=== PATIENT | female | born 1995 | race Caucasian/White ===

== ENCOUNTER 2020-06-01 21:55 | Outpatient (CLI) | payer MEDICARE, OTHER ==
[~2020-06-01 21:55] MED LIST: COLACE 100MG C100 MG PO
[2020-06-03] MEDS ORDERED: ACYCLOVIR200 MG PO (07:48)
[2020-06-03] MEDS ORDERED: PRENATAL VITAM1 EAC6 PO (07:48)
[2020-06-03] MEDS ORDERED: TUMS200 MG PO (07:49)
== END 2020-06-02 08:40 | disposition home or self-care (01) ==
LOC: GENOP 21:55
DX: Z53.8 Procedure and treatment not carried out for other reasons (principal)
CPT/HCPCS: 59025; 81001

== ENCOUNTER 2020-06-03 04:05 | Inpatient (IN) | payer MEDICARE, OTHER ==
[~2020-06-03] VITALS: Ht 157.5 cm; Wt 77.1 kg
[2020-06-03] MEDS ORDERED: ACYCLOVIR200 MG PO (07:48)
[2020-06-03] MEDS ORDERED: PRENATAL VITAM1 EAC6 PO (07:48)
[2020-06-03] MEDS ORDERED: TUMS200 MG PO (07:49)
[2020-06-03 08:18] LABS: HEMOGLOBIN 10.9 gm/dl (12.3-15.3); RED BLOOD COUNT 3.86 M/UL (4.00-5.10); WHITE BLOOD COUNT 15.1 K/UL (4.5-11.0)
[2020-06-04] MEDS ORDERED: IBUPROFEN600 MG PO ×2 (09:06→11:20)
[2020-06-04] MEDS ORDERED: DOCUSATE SODIU100 MG PO ×2 (09:07→11:20)
[2020-06-04] MEDS ORDERED: LORTAB 5-325 M1 EACH PO ×2 (09:07→11:20)
== END 2020-06-04 13:35 | disposition home or self-care (01) | DRG 806 ==
LOC: GENOP 04:05 → OB 07:25
PROVIDERS: ADMIT Obstetrics & Gynecology
PROC: 10E0XZZ Delivery of Products of Conception, External Approach (ICD-10-PCS; principal; 2020-06-03)
PROC: 3E0234Z Introduction of Serum, Toxoid and Vaccine into Muscle, Percutaneous Approach (ICD-10-PCS; 2020-06-04)
PROC: 3E02340 Introduction of Influenza Vaccine into Muscle, Percutaneous Approach (ICD-10-PCS; 2020-06-04)
DX: O36.0930 Maternal care for other rhesus isoimmunization, third trimester, not applicable or unspecified (principal); O98.52 Other viral diseases complicating childbirth; Z37.0 Single live birth; F84.5 Asperger's syndrome; Z3A.38 38 weeks gestation of pregnancy; B00.9 Herpesviral infection, unspecified; O99.344 Other mental disorders complicating childbirth; F20.9 Schizophrenia, unspecified; O75.89 Other specified complications of labor and delivery; M41.9 Scoliosis, unspecified; Z81.8 Family history of other mental and behavioral disorders; Z84.89 Family history of other specified conditions; Z82.49 Family history of ischemic heart disease and other diseases of the circulatory system; Z83.3 Family history of diabetes mellitus; Z80.7 Family history of other malignant neoplasms of lymphoid, hematopoietic and related tissues; Z20.828 Contact with and (suspected) exposure to other viral communicable diseases; Z23 Encounter for immunization
CPT/HCPCS: 36415; 51702; 59025; 81001; 85014; 85018; 85025; 85461; 86850; 86900; 86901; 87635; 90686; 90715; G0008; J2590; J3010; J7120

== ENCOUNTER 2021-06-25 16:09 | Outpatient (CLI) | payer MEDICARE, OTHER ==
[~2021-06-25 16:09] MED LIST changes: +ACYCLOVIR200 MG PO; +DOCUSATE SODIU100 MG PO; +IBUPROFEN600 MG PO; +LORTAB 5-325 M1 EACH PO; +PRENATAL VITAM1 EAC6 PO; +TUMS200 MG PO
== END 2021-06-25 18:33 | disposition home or self-care (01) ==
LOC: GENOP 16:09
DX: O26.852 Spotting complicating pregnancy, second trimester (principal); O99.891 Other specified diseases and conditions complicating pregnancy; R10.9 Unspecified abdominal pain; Z3A.22 22 weeks gestation of pregnancy
CPT/HCPCS: 81001; G0463

== ENCOUNTER 2021-08-23 18:55 | Outpatient (CLI) | payer OTHER | END 2021-08-23 21:03 | disposition home or self-care (01) | LOC: GENOP 18:55 | DX: O36.8130 Decreased fetal movements, third trimester, not applicable or unspecified (principal); O26.853 Spotting complicating pregnancy, third trimester; Z88.8 Allergy status to other drugs, medicaments and biological substances; Z3A.30 30 weeks gestation of pregnancy | CPT/HCPCS: 81001; G0463 ==